=== PATIENT | male | born 1985 | race Caucasian/White ===

== ENCOUNTER 2021-04-03 16:29 | Emergency (ER) | payer OTHER, SELFPAY ==
[2021-04-03 16:40] VITALS: BP 178/93; PULSE 73; RESP 16; TEMP 37; O2SAT 96
--- NOTE | 2021-04-03 17:08 | W.ED.GENAD ---
Discharge Plan Disposition Patient Disposition: HOME Condition: Improving Discharge Details Clinical Impression: Avulsion of skin of left thumb Primary Care Provider: Unknown,Unknown ED Provider: Ephraim Matamoros Home Meds and New Rx's Prescriptions: New cephalexin 500 mg tablet 500 mg PO TID 3 Days Qty: 9 RF: 0 Discharge Instructions Instructions: Skin Avulsion (ED) Medical Decision Making 35-year-old male who avulsed the tip of his left thumb on a sawblade at home. Did not exposed bone, the nailbed is predominantly intact the tip of the left thumbnail missing. He has normal sensation throughout. Patient was anesthetized for comfort, liberally irrigated and dressed. His tetanus status was updated and I will place him on 3 days of antibiotics to prevent infection. He is stable and appropriate discharge to home. HPI General Mode of arrival: ambulatory. Date/Time Provider Initiated Documentation: 04/03/21 16:30. Limitations to Documentation: no limitations. Information obtained by: patient. History of Present Illness 35 year old M presents to the emergency department with the chief complaint of Left thumb injury, described as moderate, Quality is described as dull and constant, and is localized to the left and upper extremity. Patient reports no radiation. Patient started experiencing this minute(s) and it has been constant. No relieving factors improve symptom(s), No exacerbating factors reported . Patient did receive the following treatments prior to arrival, none Related Data Home Medications Medication Instructions Recorded Confirmed cephalexin 500 mg PO TID 3 Days #9 tab 04/03/21 Previous Rx's Medication Instructions Recorded cephalexin 500 mg PO TID 3 Days #9 tab 04/03/21 Allergies Allergy/AdvReac Type Severity Reaction Status Date / Time alcohol Allergy Unverified 04/03/21 16:45 General Stated Complaint: Laceration WINSTON: 3 Review of Systems Narrative: No other injury. Tetanus out of date. 4 systems reviewed and otherwise negative [facility] Active Problem List (Updated 04/03/21 @ 17:10 by Ephraim Matamoros MD) Avulsion of skin of left thumb (Acute) Social History Smoking risk assessment performed?: No Do you feel safe at home: Yes Do you feel safe in your relationship?: Yes Exam Narrative Exam Narrative: GEN: awake, alert, oriented 3. Pleasant, well groomed, interactive. HEAD: Normocephalic, atraumatic Chest: No respiratory distress EXT: Full ROM, left distal thumb with partial avulsion of the distal nail and tip of the thumb. No bone exposed. Sensation intact throughout. Cap refill less than 2 seconds. Neuro: Grossly normal neurologic exam, conversant, interactive. Psych: Speech fluent, thoughts congruent, affect normal Course Vital Signs Vital signs: Vital Signs Temperature 37.0 C 04/03/21 16:40 Pulse 73 04/03/21 16:40 Respiratory Rate 16 04/03/21 16:40 Blood Pressure 178/93 H 04/03/21 16:40 Pulse Oximetry 96 04/03/21 16:40 Temperature 37.0 C 04/03/21 16:40 Temperature Source Oral 04/03/21 16:40 Pulse 73 04/03/21 16:40 Respiratory Rate 16 04/03/21 16:40 Respiratory Effort 04/03/21 16:46 Blood Pressure 178/93 H 04/03/21 16:40 Blood Pressure Position Supine 04/03/21 16:40 Pulse Oximetry 96 04/03/21 16:40 Oxygen Delivery Method Room Air 04/03/21 16:40 Oxygen Flow Rate 0 04/03/21 16:40 Pain Level 8 04/03/21 16:40
[2021-04-03] MEDS: Cephalexin 500 MG CAP PO (17:25)
[2021-04-03] MEDS: Tetanus & Diphtheria Tox,ADULT 0.5 ML VIAL IM (17:25)
== END 2021-04-03 17:34 | disposition home or self-care (01) ==
PROVIDERS: Emergency Provider Emergency Medicine
DX: S61.012A Laceration without foreign body of left thumb without damage to nail, initial encounter (principal); W27.0XXA Contact with workbench tool, initial encounter
CPT/HCPCS: 90471; 99284; 99283

== ENCOUNTER 2022-11-17 18:12 | Emergency (ER) | payer MEDICAID, SELFPAY ==
[2022-11-17 18:17] VITALS: BP 112/70; PULSE 72; RESP 18; TEMP 37.2; O2SAT 98
--- NOTE | 2022-11-17 19:15 | DI.RAD_ITS ---
Exam(s) XR CHEST 2V PA LATERAL EXAM: XR CHEST 2V PA LATERAL CLINICAL HISTORY: Right chest pain. TECHNIQUE: 2D digital imaging was performed. COMPARISON: No exams were available for comparison FINDINGS: 2 views: Heart size is normal. The mediastinum is not widened. Lungs are clear. No infiltrates nor pleural effusions. IMPRESSION: No acute pulmonary findings. DATA REPOSITORY: RADIATION DOSE DELIVERED:
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
[2022-11-17] MEDS: Acetaminophen 500 MG TAB 1000 MG PO (20:50)
== END 2022-11-17 20:56 | disposition home or self-care (01) ==
PROVIDERS: Emergency Provider Emergency Medicine; PCP Naturopath
DX: R07.89 Other chest pain (principal); S70.11XA Contusion of right thigh, initial encounter; S61.001A Unspecified open wound of right thumb without damage to nail, initial encounter; V19.88XA Pedal cyclist (driver) (passenger) injured in other specified transport accidents, initial encounter; Y93.55 Activity, bike riding; Y92.482 Bike path as the place of occurrence of the external cause; Y99.9 Unspecified external cause status; S20.211A Contusion of right front wall of thorax, initial encounter
CPT/HCPCS: 99283; 71046

== ENCOUNTER 2022-11-23 12:12 | Outpatient (CLI) | payer MEDICAID, SELFPAY ==
[2022-11-23 15:43] LABS: Abs Immature Grans 0.01 10^3/uL (0.0-0.06); Absolute Basophil Count 0.05 10^3/uL (0.0-0.2); Absolute Eosinophil Count 0.08 10^3/uL (0.0-0.7); Absolute Lymphocyte Count 1.28 10^3/uL (1.2-3.4); Absolute Monocyte Count 0.52 10^3/uL (0.1-0.8); Absolute Neutrophil Count 2.75 10^3/uL (1.2-6.7); Basophils % 1.1; Eosinophils % 1.7; HCT 45.4 % (40.0-50.0); HGB 15.3 g/dL (13.5-17.5); Immature Grans % 0.2; Lymphocytes % 27.3; MCH 31.1 pg (27.0-33.0); MCHC 33.7 % (32.0-36.0); MCV 92 fL (80-95); Monocytes % 11.1; Neutrophils % 58.6; Platelet Count 175 10^3/uL (130-400); RBC 4.92 10^6/uL (4.36-5.78); RDW 11.9 % (11.8-14.1); RDW-SD 40.5 fL; WBC 4.69 10^3/uL (4.4-10.8)
[2022-11-23 16:03] LABS: Bilirubin Negative (Negative); Blood Negative (Negative); Clarity Clear (Clear); Glucose Negative (Negative); Ketones Negative (Negative); Leukocyte Esterase Negative (Negative); Nitrite Negative (Negative); Specific Gravity 1.025 (1.005-1.025); Urobilinogen 0.2 mg/dL (Up to 0.2); pH 5.5 (5-8)
[2022-11-23 16:22] LABS: Hemoglobin A1C 4.7 % (<5.7)
[2022-11-23 17:06] LABS: Iron 115 ug/dL (65-175)
[2022-11-23 17:54] LABS: ALT 72 U/L (16-63); AST 21 U/L (15-37); Albumin 4.3 g/dL (3.4-5.0); Alkaline Phosphatase 59 U/L (46-116); Anion Gap 8.9 mmol/L (3-11); BUN 25 mg/dL (7-18); Bilirubin, Total 0.5 mg/dL (0.2-1.0); CO2 29.1 mmol/L (21.0-32.0); Calcium 8.9 mg/dL (8.5-10.1); Calculated LDL 95 mg/dL (<100); Chloride 104 mmol/L (98-107); Cholesterol 153 mg/dL (<200); Estimated GFR 100.03 (mL/min/1.73m2); Ferritin 80 ng/mL (26-388); Glucose 79 mg/dL (74-106); HDL Cholesterol 42 mg/dL (40-60); Potassium 4.3 mmol/L (3.5-5.1); Sodium 142 mmol/L (136-145); TSH 1.85 uIU/mL (0.36-3.74); Triglyceride 83 mg/dL (<150)
[2022-11-23 18:28] LABS: FREE T4 0.75 ng/dL (0.76-1.46)
[2022-11-23 19:35] LABS: Vitamin D 25 Total 42.7 ng/mL (30-100)
[2022-11-23 22:08] LABS: T3,Free 3.7 pg/mL (2.8-5.3)
== END 2022-11-23 12:13 | disposition home or self-care (01) ==
LOC: LBO 12:12
PROVIDERS: PCP Naturopath; Visit Provider Naturopath
DX: R10.33 Periumbilical pain (principal); K30 Functional dyspepsia; R14.0 Abdominal distension (gaseous); R42 Dizziness and giddiness; E07.9 Disorder of thyroid, unspecified; D50.9 Iron deficiency anemia, unspecified; Z13.220 Encounter for screening for lipoid disorders; E55.9 Vitamin D deficiency, unspecified; R35.0 Frequency of micturition; Z13.1 Encounter for screening for diabetes mellitus
CPT/HCPCS: 36415; 80053; 80061; 82306; 81003; 82728; 83036; 83540; 84439; 84443; 84481; 85025

== ENCOUNTER 2023-04-03 18:50 | Outpatient (CLI) | payer MEDICAID, SELFPAY ==
[2023-04-03 10:59] LABS: ALT 74 U/L (16-63); AST 29 U/L (15-37); Albumin 4.3 g/dL (3.4-5.0); Alkaline Phosphatase 64 U/L (46-116); Anion Gap 8.2 mmol/L (3-11); BUN 18 mg/dL (7-18); Bilirubin, Total 0.7 mg/dL (0.2-1.0); CO2 30.8 mmol/L (21.0-32.0); CREATININE 1.2 mg/dL (0.70-1.30); Calcium 9.3 mg/dL (8.5-10.1); Chloride 104 mmol/L (98-107); Estimated GFR 80.38 (mL/min/1.73m2); Glucose 64 mg/dL (74-106); Potassium 4.1 mmol/L (3.5-5.1); Sodium 143 mmol/L (136-145); Total Protein 7.5 g/dL (6.4-8.2)
== END 2023-04-03 18:51 | disposition home or self-care (01) ==
LOC: LBO 18:51
PROVIDERS: PCP Naturopath; Visit Provider Naturopath
DX: R10.33 Periumbilical pain (principal); K30 Functional dyspepsia; R14.0 Abdominal distension (gaseous); R42 Dizziness and giddiness; E07.9 Disorder of thyroid, unspecified; D50.9 Iron deficiency anemia, unspecified; Z13.220 Encounter for screening for lipoid disorders; E55.9 Vitamin D deficiency, unspecified; R35.0 Frequency of micturition; Z13.1 Encounter for screening for diabetes mellitus
CPT/HCPCS: 36415; 80053

== ENCOUNTER 2023-04-17 14:24 | Outpatient (REF) | payer MEDICAID, SELFPAY ==
[2023-04-17 16:31] LABS: Creatinine,Urine 185.13 mg/dL
[2023-04-17 16:35] LABS: Creatinine,24hr Ur 2.41 g/24hr (0.95-2.49); Total Volume 1300 ml
== END 2023-04-17 14:25 | disposition home or self-care (01) ==
LOC: LBN 14:24
PROVIDERS: PCP Naturopath; Visit Provider Naturopath
DX: R74.01 Elevation of levels of liver transaminase levels (principal); E07.9 Disorder of thyroid, unspecified; R42 Dizziness and giddiness; R35.0 Frequency of micturition; R79.89 Other specified abnormal findings of blood chemistry; E66.3 Overweight
CPT/HCPCS: 81050; 82570